=== PATIENT | female | born 1975 | race Caucasian/White ===

== ENCOUNTER 2022-11-23 08:29 | Emergency (ER) | payer OTHER, SELFPAY ==
--- NOTE | 2022-11-23 08:42 | ED.GENADULT ---
HPI - General Adult General Chief complaint: Ear Stated complaint: Left Ear Irritation Time Seen by Provider: 11/23/22 08:50 Source: patient, RN notes reviewed and old records reviewed Mode of arrival: ambulatory Limitations: no limitations History of Present Illness HPI narrative: 47-year-old female presents to the [facility] with concerns of having a moth in her left ear. Onset (ago): hour(s) Related Data Allergies Allergy/AdvReac Type Severity Reaction Status Date / Time No Known Allergies Allergy Verified 11/23/22 08:59 Review of Systems Review of Systems: All systems reviewed & are unremarkable except as noted in HPI and below Constitutional: Constitutional: Reports no additional constitutional complaints Eyes: Eyes: Reports no additional eye complaints ENT: Reports as per HPI and Reports otalgia (Left) Cardiovascular: Cardiovascular: Reports no additional cardiovascular complaints, Denies chest pain and Denies dyspnea Respiratory: Respiratory: Reports no additional respiratory complaints, Denies chest congestion, Denies cough and Denies dyspnea Gastrointestinal: Gastrointestinal: Reports no additional gastrointestinal complaints, Denies abdominal pain, Denies nausea and Denies vomiting Musculoskeletal: Musculoskeletal: Reports no additional musculoskeletal complaints Integumentary/Breasts: Skin/Breast: Reports system reviewed and no additional complaints, except as docu Neurologic: Reports system reviewed and no additional complaints, except as documented Psychiatric: Psychiatric: Reports no additional psychiatric complaints Allergic/Immunologic: Allergic/Immunologic: Reports no additional allergic/immunologic complaints PMFSH Comments At the time of my signature, I reviewed and agree with the nursing past medical, surgical, social, and family history. There is no relevant family history pertinent to the patient complaint. Exam Const: General: cooperative, healthy appearing, comfortable, no acute distress, well developed, alert and well nourished Nutritional Appearance: well nourished Orientation/consciousness: patient oriented x3 Limitations: no limitations HENMT: Head: normal to inspection Ears: hearing grossly normal bilaterally, external ears normal and Abnormal EAC present foreign body on the left Face/Nose/Sinus: Normal external nose present, Normal nares present, Normal nasal mucous membranes and turbinates present and normal facial exam Face and sinus: normal facial exam Mouth: Yes Normal oral and palatal mucosa present, Yes lip normal and Yes moist mucous membranes Throat: posterior oropharynx normal and uvula midline Eyes: General: appearance normal, both eyes and all related structures Alignment and Position: alignment normal Periorbital: periorbital findings normal Pupils: Equal, round and reactive pupils present EOM: EOMs intact bilaterally Neck: Neck: normal visual inspection, full ROM, no lymphadenopathy and no meningeal signs Chest: Chest palpation & inspection: normal inspection of the chest Resp: Effort & Inspection: normal respiratory effort and able to speak in complete sentences Auscultation: clear to auscultation bilaterally, no crackles, no rales, no rhonchi and no wheezes Cardio: Rate: regular rate Rhythm: regular rhythm Back/Spine/Pelvis: Cervical Spine: cervical ROM normal Thoracic/Lumbar Spine: No thoracic spinal tenderness Skin: General skin exam: normal color and no rashes or lesions noted Lesions: no lesions Rashes: no rashes Wounds: no wounds Neuro: General: patient oriented x3, gait normal, tone normal, moves all extremities and no meningeal signs Cranial nerves: Yes Equal, round and reactive pupils present Cognition (Neuro): normal cognition Speech: normal speech Gait exam (Neuro): Normal gait present Extrem: General: normal to inspection, full ROM, capillary refill normal and normal gait Psych: Appearance: grossly normal and well kempt Mental Status: m
[2022-11-23 08:49] VITALS: BP 118/68; PULSE 101; RESP 16; TEMP 36.8; O2SAT 98
== END 2022-11-23 09:15 | disposition home or self-care (01) ==
PROVIDERS: Emergency Provider Nurse Practitioner
DX: T16.2XXA Foreign body in left ear, initial encounter (principal); X58.XXXA Exposure to other specified factors, initial encounter
CPT/HCPCS: 69200; 99213; A9270; G0463

== ENCOUNTER 2022-12-12 14:49 | Outpatient (CLI) | payer OTHER, SELFPAY ==
[2022-12-12 15:20] LABS: Hematocrit 47.9 % (37.0-47.0); Hemoglobin 15.7 g/dL (12.0-15.0)
== END 2022-12-12 14:50 | disposition home or self-care (01) ==
LOC: ANHSURGERY 14:56
PROVIDERS: Visit Provider Obstetrics & Gynecology
DX: N93.9 Abnormal uterine and vaginal bleeding, unspecified (principal); Z01.818 Encounter for other preprocedural examination
CPT/HCPCS: 36415; 85014; 85018

== ENCOUNTER 2022-12-14 01:10 | Day surgery (SDC) | payer OTHER, SELFPAY ==
[2022-12-11 09:11] VITALS: BMI 29.8
--- NOTE | 2022-12-11 09:18 | PC.NURSE ---
Report to the Outpatient Waiting Room, entrance under the green pavilion located off [facility], at time _0630 on date 12/14/22__. Planned Procedure Time: _0830_. Time changes happen often and if your time is changed the preop area will call you the afternoon before. - You and your visitor will be asked to self-screen and do not enter if you have any COVID symptoms. - A mask is optional within the hospital at this time. Patients may have clear liquids (water, carbonated beverages, clear teas, apple juice) until 3 hours prior to surgery with a maximum of 20 ounces. - No food from midnight until time of surgery - Infants may have breast milk until 4 hours before surgery, formula 6 hours prior to surgery. - Children will be allowed to drink immediately following surgery. If applicable, please bring a bottle or sippy cup to assist with drinking. Juice, water, soda, and popsicles are readily available. For infants on formula, please bring formula the day of surgery. Pacifiers are allowed. Take the following medications with a SIP of water the morning of surgery: NONE__ DO NOT STOP ANY OF YOUR OTHER PRESCRIPTION MEDICATIONS PRIOR TO SURGERY ?EXCEPT THE FOLLOWING Medications to discontinue per physician NONE Date to take last dose Please no make-up, nail indian, hairspray, perfume, deodorant, or body powder the day of surgery. No jewelry (including any body piercings) or valuables the day of surgery, leave them at home. Please take a shower or bath the night before, or the morning of, surgery with an antibacterial soap. Wear comfortable, loose fitting clothing. Children are encouraged to wear pajamas. - Jewelry must be removed prior to entering the operating room. Rings and piercings that are not removed may be cut off. - The hospital will not accept responsibility for valuables. - Please leave all valuables, including medications, at home the day of surgery. If you are going home after surgery, a licensed grain combine driver must drive you home. - NO public transportation without another adult if you receive anesthesia. - We recommend that an adult stay with you for 24 hours following discharge. - We also recommend that you do not drive, make important decision, drink alcoholic beverages, or take any drugs that were not prescribed by your health care provider for at least 24 hours after your discharge time. For Pediatric surgeries, we recommend two adults accompany the child home. Follow any additional instructions given to you from your surgeon. If you or anyone in your household have experienced Covid symptoms in the past week, please notify your surgeon or the nurse liaison at the phone number below for possible testing. Telephone instructions given to _PATIENT_and asked if any additional questions and then verbalized understanding. Patient advised to call surgeon office or pre surgery nurse liaison [phone] if any additional questions.
--- NOTE | 2022-12-12 06:55 | P.HP_ITS ---
H&P: HPI History of Present Illness Date/Time: 12/12/22 06:55 Chief Complaint: Heavy vaginal bleeding Narrative: To 47-year-old female status post tubal was admitted for hysteroscopy/dilatation curettage/Nicole ablation secondary to excessive heavy bleeding. She used refuses to use hormonal manipulation. She had complaints of excessive bleeding. The above-named procedures were reviewed. Risks and benefits were reviewed in great detail. She has had a normal Pap within the last 2 months. [facility] Social History Social History Additional smoking assessment comments: SMOKES WHILE DRINKING/ 10 CIGARETTES PER WEEK Alcohol intake: current Drinks per week: 8 Substance use: former Substance use type: crack/cocaine Other substance usage details: 3YRS Living arrangements: with family Meds Home Medications and Allergies Home Medications Medication Instructions Recorded Confirmed Type No Home Medications 12/11/22 12/11/22 History Allergies Allergy/AdvReac Type Severity Reaction Status Date / Time No Known Allergies Allergy Verified 11/23/22 08:59 Exam Const: General: cooperative, healthy appearing and comfortable Nutritional Appearance: average body habitus Orientation/consciousness: oriented to person, oriented to place and oriented to time HENMT: Head: normal to inspection Resp: Effort & Inspection: normal respiratory effort Cardio: Rate: regular rate Rhythm: regular rhythm Heart sounds: S1 normal heart sound present and S2 normal heart sound present GI: Inspection: normal to inspection : External Female Exam: normal external appearance Speculum Exam - Vagina: normal appearance of the vagina Speculum Exam - Cervix: normal appearance of the cervix Bimanual exam- vagina & uterus: uterine shape normal Bimanual Exam- Adnexa, other: normal adnexae Assessment and Plan Assessment and plan (1) Excessive bleeding: Code(s): R58 - Hemorrhage, not elsewhere classified Status: Acute Plan Hysteroscopy/dilatation curettage/Nicole ablation
--- NOTE | 2022-12-13 11:54 | P.PNAN_ITS ---
Anes - Initial Pre Proc Eval Procedure: Operation Date: 12/14/22 08:30 Proposed Procedures p Hysteroscopy Dilation and Curettage, Nicole Endometrial Ablation - Juan Ramirez MD Date/Time: 12/13/22 11:54 Surgeon: Juan Ramirez MD Pre Op Diagnosis: Excessive bleeding Patient Data Age: 47 Gender: F Height: 1.57 m Weight: 74 kg Allergies Allergy/AdvReac Type Severity Reaction Status Date / Time No Known Allergies Allergy Verified 11/23/22 08:59 Home Medications Medication Instructions Recorded Confirmed Type No Home Medications 12/11/22 12/11/22 History Results Review: All pre-operative results and documents have been reviewed as part of the pre- operative evaluation. [facility] Social History Social History Additional smoking assessment comments: SMOKES WHILE DRINKING/ 10 CIGARETTES PER WEEK Alcohol intake: current Drinks per week: 8 Substance use: former Substance use type: crack/cocaine Other substance usage details: 3YRS Living arrangements: with family Anes - Eval Final PreProcedure Day of Procedure 12/13/22 11:54 Patient weight: overweight Heart: regular rate and rhythm Lungs: clear to auscultation Airway: Mallampati scale class II Neurological: alert and oriented Last oral intake: >/= 8 hours ASA classification: II Emergent: no Anesthetic plan: proceed Anesthesia type and monitoring: general GIVS and standard monitoring Results Review: All pre-operative results and documents have been reviewed as part of the pre- operative evaluation. Informed Consent: The patient's anesthetic plan and its attendant risks and benefits were discussed with the patient/family/POA. Questions were solicited and answers provided to the satisfaction of the patient/family/POA.
--- NOTE | 2022-12-14 06:28 | WPDHPUPDATE1 ---
History and Physical Update Update Date/Time: 12/14/22 06:28 History and Physical has been reviewed, including an updated exam of the patient. There are NO changes in the patient's condition. Risks, benefits, and alternatives have been discussed and questions answered. Patient agrees to proceed with procedure.
[2022-12-14 06:52] VITALS: BP 117/80; PULSE 77; RESP 16; TEMP 36.3; O2SAT 97
[2022-12-14] MEDS: LACTATED RINGERS 1,000 ML 30 ML IV CONT (07:08)
[2022-12-14] MEDS: ACETAMINOPHEN 500 MG TABLET 1000 MG PO (07:09)
--- NOTE | 2022-12-14 07:20 | WPDANESEPPF ---
Anes - Initial Pre Proc Eval Procedure: Operation Date: 12/14/22 08:30 Proposed Procedures p Hysteroscopy Dilation and Curettage, Nicole Endometrial Ablation - Juan Ramirez MD Date/Time: 12/14/22 07:20 Surgeon: Juan Ramirez MD Pre Op Diagnosis: Excessive bleeding Patient Data Age: 47 Gender: F Height: 1.57 m Weight: 75 kg Last Vital Signs Temp 36.3 C L 12/14/22 06:52 Pulse 77 12/14/22 06:52 Resp 16 12/14/22 06:52 BP 117/80 12/14/22 06:52 Pulse Ox 97 12/14/22 06:52 O2 Del Method Autopap 12/14/22 06:52 Allergies Allergy/AdvReac Type Severity Reaction Status Date / Time No Known Allergies Allergy Verified 11/23/22 08:59 Home Medications Medication Instructions Recorded Confirmed Type hydrocodone 5 mg-acetaminophen 325 1 tablet PO Q4H PRN pain #20 tabs 12/14/22 Rx mg tablet Patient hx anesthesia problems: none Family hx anesthesia problems: none Results Review: All pre-operative results and documents have been reviewed as part of the pre-operative evaluation. [facility] Past Medical History Medical History (Updated 12/14/22 @ 07:22 by Juan Mathews MD) Overweight Social History Social History Additional smoking assessment comments: SMOKES WHILE DRINKING/ 10 CIGARETTES PER WEEK Alcohol intake: current Drinks per week: 8 Substance use: former Substance use type: crack/cocaine Other substance usage details: 3YRS Living arrangements: with family Anes - Eval Final PreProcedure Day of Procedure 12/14/22 07:20 Patient weight: overweight Heart: regular rate and rhythm Lungs: clear to auscultation Airway: Mallampati scale class II Neurological: alert and oriented Last oral intake: >/= 8 hours ASA classification: II Emergent: no Anesthetic plan: proceed Anesthesia type and monitoring: general GIVS and standard monitoring Results Review: All pre-operative results and documents have been reviewed as part of the pre-operative evaluation. Informed Consent: The patient's anesthetic plan and its attendant risks and benefits were discussed with the patient/family/POA. Questions were solicited and answers provided to the satisfaction of the patient/family/POA.
[2022-12-14] MEDS: KETOROLAC 30 MG/ML VIAL (*BKC) IV PUSH (08:29)
[2022-12-14] MEDS: LIDOCAINE HCL 1% LOCAL INJ 20 ML VIAL 10 ML INFILTRATE (08:30)
--- NOTE | 2022-12-14 08:41 | W.PM.PROC2 ---
Procedure Note - Detailed Date of Procedure 12/14/22 Pre-op Diagnosis Excessive bleeding Post-op Diagnosis Same Procedure Performed Hysteroscopy/polypectomy/dilatation and curettage/Nicole ablation Surgeon Juan Ramirez MD Anesthesia MAC and Local Indications Is a 47-year-old female with excessive heavy bleeding Findings Small uterine polyp. Uterus sounded to 9cm. Description of Procedure Patient was prepped draped in normal sterile fashion placed in the dorsal lithotomy position station speculum placed posterior. Anterior the cervix single-tooth 2.5cc% xylocaine anesthesia placed at 2, 4, 8:10 a.m. the cervix. Uterus sounded 9cm. Serial dilatation with fragmented dilators performed followed passage of the number 5 BT hysteroscope using normal saline visualizing medium pinnae. A small polyp was seen polyp forceps was passed and this was without difficulty the uterus was scraped over the entire 360? until good grating sound was heard. The instruments removed and the Nicole instrument was placed to the appropriate settings. Was burned for 120seconds and removed. The of the day hysteroscope was reinserted and excellent burn was noted in photo documentation undertaken. The instruments removed all were accounted for. Patient went to recovery in satisfactory condition. All sponge, needle, instrument counts were correct. There were no immediate complications noted Estimated Blood Loss 5 Drains No Packing No Pathology Yes Complications No immediate complications Condition Stable Disposition PACU
[2022-12-14 08:43] VITALS: BP 91/58; PULSE 74; RESP 12; O2SAT 96
[2022-12-14 09:10] VITALS: BP 103/71; PULSE 56; RESP 20
[2022-12-14] MEDS: oxyCODONE HCL (*CRX) 5 MG TAB IR PO (09:38)
[2022-12-14 09:40] VITALS: BP 110/70; PULSE 60; RESP 20
[2022-12-14 10:10] VITALS: BP 108/70; PULSE 70; RESP 20
== END 2022-12-14 10:15 | disposition home or self-care (01) ==
PROVIDERS: Visit Provider Obstetrics & Gynecology
PROC: 0U5B8ZZ Destruction of Endometrium, Via Natural or Artificial Opening Endoscopic (ICD-10-PCS; CPT 58563; principal; 2022-12-14 08:30)
DX: N93.9 Abnormal uterine and vaginal bleeding, unspecified (principal); N84.0 Polyp of corpus uteri; Z72.0 Tobacco use
CPT/HCPCS: 58563; 88305; A9270; J1100; J1885; J2250; J2405; J2704; J3010; J7120

== ENCOUNTER → 2023-01-07 15:17 | Outpatient (CLI) | payer OTHER, SELFPAY ==
--- NOTE | ~2023-01-07 | MM_ITS ---
EXAMINATION: MM screening amada BI w pietro HISTORY: Screening TECHNIQUE: Craniocaudal and mediolateral oblique 3-D tomosynthesis images were obtained and synthetic 2-D images were generated. CAD analysis was submitted and interpreted. COMPARISON: No prior mammogram is available for comparison at this institution. BREAST PARENCHYMAL COMPOSITION: Breast composition is almost entirely fatty FINDINGS: There is no evidence of suspicious mass, calcification, or architectural distortion to sugg est malignancy in either breast. There has been no suspicious interval change. IMPRESSION: 1. No mammographic evidence of malignancy. 2. Recommend routine screening mammography in one year. BI-RADS Category 1: Negative Reviewed, dictated and finalized at location A.
== END ==
PROVIDERS: PCP Obstetrics & Gynecology; Visit Provider Obstetrics & Gynecology
DX: Z12.31 Encounter for screening mammogram for malignant neoplasm of breast (principal)
CPT/HCPCS: 77063; 77067

== ENCOUNTER 2023-05-10 07:49 | Outpatient (CLI) | payer OTHER, SELFPAY ==
--- NOTE | ~2023-05-10 | US_ITS ---
EXAMINATION: US thyroid DATE: 05/10/2023 08:09 INDICATION: Nontoxic goiter, unspecified. TECHNIQUE: Multiple ultrasound images of the thyroid were obtained. COMPARISON: None. FINDINGS: The right thyroid lobe measures 5.3 x 1.9 x 1.5 cm. The left thyroid lobe measures 4.8 x 1.6 x 1.4 c m. There are multiple nodules measuring up to 4 mm. In the left thyroid lobe, there is a 6 mm solid, hypoechoic, wider than tall nodule with smooth margin without echogenic foci (TI-RADS TR4). In the r ight thyroid lobe, there is a 6 mm solid, hypoechoic, wider than tall nodule with smooth margin witho ut echogenic foci (TR4). IMPRESSION: 1. Small thyroid nodules, likely not clinically significant. No follow-up is needed. Reviewed, dictated and finalized at location E. [facility] IMPRESSION: 1. Small thyroid nodules, likely not clinically significant. No follow-up is ne eded.
== END 2023-05-10 07:50 ==
LOC: MICIMG 07:50
PROVIDERS: PCP Family Medicine; Visit Provider Family Medicine
DX: E04.2 Nontoxic multinodular goiter (principal)
CPT/HCPCS: 76536